=== PATIENT | male | born 1970 | race Caucasian/White ===

== ENCOUNTER 2016-06-24 13:16 | Emergency (ER) ==
[2016-06-24 13:21] VITALS: BP 124/66; TEMP 99.3; BMI 25.5
--- NOTE | 2016-06-24 14:00 | ED.PDOC ---
General ED Provider: Dr. MADELAINE MARQUIS JR Chief Complaint: Knee Pain/Injury Stated Complaint: onset pain to rt knee one week ago-progressively worse-- denies any injury--occurred when getting into truck --pain keeps him awake at nite. [ End ]hip thigh leg decreased ROM 1 week 99.3 83 20 97% 124/66 8/10 Time Seen by Physician: 13:55 Mode of Arrival: Walk-In Information Source: Patient Exam Limitations: No limitations Nursing and Triage Documentation Reviewed and Agree: No Review of Systems - Review Of Systems Constitutional: Reports: No symptoms Eyes: Reports: No symptoms Ears, Nose, Mouth, Throat: Reports: No symptoms Respiratory: Reports: No symptoms Cardiac: Reports: No symptoms GI: Reports: No symptoms : Reports: No symptoms Musculoskeletal: Reports: Joint pain Skin: Reports: No symptoms Neurological: Reports: No symptoms Endocrine: Reports: No symptoms Hematologic/Lymphatic: Reports: No symptoms All Other Systems: Other Past Medical History - Past Medical History Previously Healthy: Yes Endocrine: Reports: None Cardiovascular: Reports: None Respiratory: Reports: None Hematological: Reports: None Gastrointestinal: Reports: Other (gallbladder problems) Genitourinary: Reports: None Neuro/Psych: Reports: None Musculoskeletal: Reports: Joint Pain Cancer: Reports: None Other Pertinent Past Medical History: RT SHOULDER, RIGHT THUMB, AND LEFT HAND GALLBLADDER PROBLEMS - Surgical History General Surgical History: Reports: Orthopedic (RT SHOULDER, RIGHT THUMB, AND LEFT HAND ) - Family History Family History: Reports: Unknown - Social History Smoking Status: Current every day smoker, Light tobacco smoker Hx Substance Use: No Alcohol Screening: None Physical Exam - Physical Exam Appearance: Well-appearing, Thin Pain Distress: Moderate Neck: Supple Respiratory: Airway patent Musculoskeletal: Normal strength, No edema, No calf tenderness (tender medial knee at medial meniscus- nondefinitive meniscal signs) Skin: Warm, Dry, Normal color Neurological: Sensation intact, Motor intact, Reflexes intact, Cranial nerves intact, Alert, Oriented Re-Evaluation - Re-Evaluation Time of Re-Evaluation: 15:38 Status: Unchanged (patient recalls painin area when spinnig to throw a branch at work a little over a week ago- no really painful at the time - worsening over past week or so) Critical Care Note - Critical Care Note Total Time (mins): 0 Course - Course Orders, Labs, Meds: Orders Category Date Time Status LLOYD [ED LLOYD WRAP] .ONCE EMERGENCY 06/24/16 15:28 Active ED CRUTCHES .ONCE EMERGENCY 06/24/16 15:28 Active KNEE, RIGHT 4 VIEWS Stat RADS 06/24/16 13:58 Completed Vital Signs: Temp Pulse Resp BP Pulse Ox 06/24/16 13:16 99.3 F 83 20 124/66 97 Departure - Departure Time of Disposition: 15:25 Disposition: HOME SELF-CARE Discharge Problem: Injury of knee, Avulsion fracture of condyle of femur Instructions: Avulsion Fracture (ED) Condition: Good Pt referred to PMD for follow-up: Yes Additional Instructions: follow up with PMD- may follow up with [facility] in 3-5 days lloyd for comfort limiit weight on right leg consider MRI and orthopedic referral Prescriptions: Hydrocodone Bit/Acetaminophen [Deming 5-325] 1 - 2 tab PO Q6HR PRN #12 tablet PRN Reason: pain Naproxen [Naprosyn] 500 mg PO Q12HR PRN #30 tablet PRN Reason: PAIN Allergies/Adverse Reactions: Allergies chlorpromazine HCl [From Thorazine] Adverse Reaction (Verified 06/24/16 13:22) Home Medications: Ambulatory Orders Hydrocodone Bit/Acetaminophen [Deming 5-325] 1 - 2 tab PO Q6HR PRN #12 tablet 05/29 Naproxen [Naprosyn] 500 mg PO Q12HR PRN #30 tablet 06/24/16
--- NOTE | 2016-06-24 14:29 | DI ---
EXAM: Radiographs, right knee HISTORY: Right medial meniscus sign. COMPARISON: None available. TECHNIQUE: Four views. FINDINGS: Bone mineralization is normal. There is focal lucency within the medial femoral condyle on the sunrise view, not well seen on additional views. Otherwise, there has no fracture or disloca tion. Mild medial compartment joint space narrowing and marginal osteophyte formation noted. No fo eliana soft tissue abnormality is seen. IMPRESSION: 1. Possible osteochondral lesion in the medial femoral condyle. 2. Mild medial compartment osteoarthritis. 3. Consider follow-up MRI if further evaluation is needed.
== END 2016-06-24 15:42 | disposition home or self-care (01) ==
LOC: ED 13:16
DX: S72.411A Displaced unspecified condyle fracture of lower end of right femur, initial encounter for closed fracture (principal); F17.210 Nicotine dependence, cigarettes, uncomplicated
CPT/HCPCS: 99283